=== PATIENT | female | born 1985 ===

== ENCOUNTER 2019-12-06 14:15 | Inpatient (IN) | payer OTHER ==
[~2019-12-06] VITALS: Ht 162.6 cm; Wt 65.8 kg
[2019-12-14] MEDS ORDERED: PRENATAL TABLE1 EAC1 PO (09:34)
== END 2019-12-16 12:30 | disposition home or self-care (01) | DRG 807 ==
LOC: SURG-SUITE 12-14 09:21 → LDR 12-14 09:21 → SURG-SUITE 12-14 13:17 → LDR 12-23 14:15 → OB/GYN 12-23 14:15
PROVIDERS: ADMIT Specialist
PROC: 10E0XZZ Delivery of Products of Conception, External Approach (ICD-10-PCS; principal; 2019-12-14)
PROC: 0HQ9XZZ Repair Perineum Skin, External Approach (ICD-10-PCS; 2019-12-14)
PROC: 10907ZC Drainage of Amniotic Fluid, Therapeutic from Products of Conception, Via Natural or Artificial Opening (ICD-10-PCS; 2019-12-14)
PROC: 3E033VJ Introduction of Other Hormone into Peripheral Vein, Percutaneous Approach (ICD-10-PCS; 2019-12-14)
PROC: 4A1HXCZ Monitoring of Products of Conception, Cardiac Rate, External Approach (ICD-10-PCS; 2019-12-14)
DX: O70.0 First degree perineal laceration during delivery (principal); Z37.0 Single live birth; Z3A.38 38 weeks gestation of pregnancy